=== PATIENT | male | born 1945 | race Caucasian/White ===

== ENCOUNTER 2017-05-17 10:27 | Emergency (ER) | payer MEDICARE, OTHER ==
[~2017-05-17] VITALS: Ht 182.9 cm; Wt 99.8 kg
[~2017-05-17 10:27] MED LIST: DIGOXIN0.125 MG PO; FLEXERIL10 M1 PO; HYDROCODONE1 TABLET PO; LEVOTHYROXIN0.025 M1 PO; MELOXICAM7.5 MG PO; PANTOPRAZOLE SO40 M1 PO; TRAMADOL50 M1 PO; VALSARTAN AND H1 TA1 PO; ZOFRAN4 MG PO
--- NOTE | 2017-05-17 11:17 | Emergency Room Report ---
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 N Clinical Suspician of Infection? N Mental Status: 1 - Regular (Normal Baseline) Sepsis Risk:Low Sepsis Risk Have you (or family members/close friends) recently traveled outside the [place]? N If Yes, where/when: Have you had exposure to infectious disease within the past month? N TB? Other? 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 No numbness or weakness. Lac 2.5 cm at dorsal PIP joint of right index finger, L shaped, no tendon or bone exposure. ALLERGIES Coded Allergies: NO KNOWN ALLERGIES (05/17/17) Home Medications Reported Medications Levothyroxine Sodium (Levothyroxine 0.025MG) 0.025 MG PO DAILY 90 Days Pantoprazole Sodium 40 MG PO DAILY 90 Days VALSARTAN/HYDROCHLOROTHIAZIDE (Valsartan-Hctz 160-12.5 MG Tab) 1 TAB PO DAILY 30 Days History Medical History General Angina: No IN: No Hypertension? Yes Hyperlipidemia? No CHF? No COPD? No Asthma? No CVA? No Seizures? No Diabetes? No GB Disease: No MRSA? No TB? No Cancer? No Immunization Hx DT/Tetanus 1-4 Years Ago Surgical Hx Previous Surgery?Y CARDIAC ABLATION Social History Smoking Hx Smoker: Never Smoker Tobacco: No Alcohol Alcohol: No Review of Systems All Other Systems Reviewed and Negative Skin see HPI Physical Exam Vital Signs Vital Signs Date Time Temp Pulse Resp B/P Pulse O2 O2 Flow FiO2 Ox Delivery Rate 05/17 1035 98.1 75 16 138/82 98 General Appearance normal appearance, WD/WN, no apparent distress Respiratory Status No: respiratory distress. Cardiovascular no peripheral edema, normal peripheral pulses Peripheral Pulses Peripheral Pulses 4+ radial (R) Extremities normal range of motion, normal inspection, normal capillary refill Strength 5 Upper Ext (L), 5 Upper Ext (R), 5 Lower Ext (L), 5 Lower Ext (R) Neurologic alert, normal exam, no motor/sensory deficits, Good ROM all joints of all digits when checked in isolation. Glascow Coma Scale Glascow Coma Scale Response Value EYE response: 4 Spontaneously 4 MOTOR response: 6 OBEYS 6 VERBAL response: 5 Oriented & Converses 5 Total 15 Skin laceration(s), L shaped, dorsal aspect DIP right index, 2.5 cm, non tendon or bone exposure; no debris; positive triangular thick flap noted. Medical Decision Making LABS/Meds/Orders Pt receiving controlled substance in ED? No Results/Orders Current Medication Orders Sig/Kasi Start time Last Medication Dose Route Stop Time Status Admin Lidocaine HCl 0 .STK-MED ONE 05/17 1037 DC .ROUTE Procedures Laceration/Wound Repair Laceration/Wound Repair Risks/benefits discussed with pt/guardian? Yes Tetanus status up to date Wound Location finger(s) Wound Length (cm) 2.5 Wound's Depth, Shape sucutaneous tissue Wound Explored no FB identified Risk of retained FB explained to pt/guardian? Yes Irrigated w/ Saline (ccs) 100 Wound Prep Hibiclens Anesthesia 1% Lidocaine Volume Anesthetic (ccs) 6 Wound Debrided none Wound Repaired With sutures Suture Size/Type 4:0, Ethilon Layer Closure No Total Number Sutures 8 Sterile Dressing Applied Yes Splint Applied No Departure Departure Time of Disposition 1112 Disposition DC Home or Self Care(routine) Clinical Impression Primary Impression: Laceration of right index finger Qualifiers: Encounter type: initial encounter Damage to nail status: without damage Foreign body presence: without foreign body Qualified Code: S61.210A - Laceration without foreign body of right index finger without damage to nail, initial encounter Condition STABLE Referrals Rory Negrete MD Patient Instructions DI for Minor Laceration Additional Instructions One handed work until sutures out; keep wound covered and dry at all times. Discharge Counseling Counseled pt/family regarding diagnosis, home care, follow up needs ED Critical Care Critical Care No at [id number]
--- NOTE | 2017-05-17 11:17 | Emergency Room Report ---
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 N Clinical Suspician of Infection? N Mental Status: 1 - Regular (Normal Baseline) Sepsis Risk:Low Sepsis Risk Have you (or family members/close friends) recently traveled outside the [place]? N If Yes, where/when: Have you had exposure to infectious disease within the past month? N TB? Other? 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 No numbness or weakness. Lac 2.5 cm at dorsal PIP joint of right index finger, L shaped, no tendon or bone exposure. ALLERGIES Coded Allergies: NO KNOWN ALLERGIES (05/17/17) Home Medications Reported Medications Levothyroxine Sodium (Levothyroxine 0.025MG) 0.025 MG PO DAILY 90 Days Pantoprazole Sodium 40 MG PO DAILY 90 Days VALSARTAN/HYDROCHLOROTHIAZIDE (Valsartan-Hctz 160-12.5 MG Tab) 1 TAB PO DAILY 30 Days History Medical History General Angina: No [place]: No Hypertension? Yes Hyperlipidemia? No CHF? No COPD? No Asthma? No CVA? No Seizures? No Diabetes? No GB Disease: No MRSA? No TB? No Cancer? No Immunization Hx DT/Tetanus 1-4 Years Ago Surgical Hx Previous Surgery?Y CARDIAC ABLATION Social History Smoking Hx Smoker: Never Smoker Tobacco: No Alcohol Alcohol: No Review of Systems All Other Systems Reviewed and Negative Skin see HPI Physical Exam Vital Signs Vital Signs Date Time Temp Pulse Resp B/P Pulse O2 O2 Flow FiO2 Ox Delivery Rate 05/17 1035 98.1 75 16 138/82 98 General Appearance normal appearance, WD/WN, no apparent distress Respiratory Status No: respiratory distress. Cardiovascular no peripheral edema, normal peripheral pulses Peripheral Pulses Peripheral Pulses 4+ radial (R) Extremities normal range of motion, normal inspection, normal capillary refill Strength 5 Upper Ext (L), 5 Upper Ext (R), 5 Lower Ext (L), 5 Lower Ext (R) Neurologic alert, normal exam, no motor/sensory deficits, Good ROM all joints of all digits when checked in isolation. Glascow Coma Scale Glascow Coma Scale Response Value EYE response: 4 Spontaneously 4 MOTOR response: 6 OBEYS 6 VERBAL response: 5 Oriented & Converses 5 Total 15 Skin laceration(s), L shaped, dorsal aspect DIP right index, 2.5 cm, non tendon or bone exposure; no debris; positive triangular thick flap noted. Medical Decision Making LABS/Meds/Orders Pt receiving controlled substance in ED? No Results/Orders Current Medication Orders Sig/Kasi Start time Last Medication Dose Route Stop Time Status Admin Lidocaine HCl 0 .STK-MED ONE 05/17 1037 DC .ROUTE Procedures Laceration/Wound Repair Laceration/Wound Repair Risks/benefits discussed with pt/guardian? Yes Tetanus status up to date Wound Location finger(s) Wound Length (cm) 2.5 Wound's Depth, Shape sucutaneous tissue Wound Explored no FB identified Risk of retained FB explained to pt/guardian? Yes Irrigated w/ Saline (ccs) 100 Wound Prep Hibiclens Anesthesia 1% Lidocaine Volume Anesthetic (ccs) 6 Wound Debrided none Wound Repaired With sutures Suture Size/Type 4:0, Ethilon Layer Closure No Total Number Sutures 8 Sterile Dressing Applied Yes Splint Applied No Departure Departure Time of Disposition 1112 Disposition DC Home or Self Care(routine) Clinical Impression Primary Impression: Laceration of right index finger Qualifiers: Encounter type: initial encounter Damage to nail status: without damage Foreign body presence: without foreign body Qualified Code: S61.210A - Laceration without foreign body of right index finger without damage to nail, initial encounter Condition STABLE Referrals Rory Negrete MD Patient Instructions DI for Minor Laceration Additional Instructions One handed work until sutures out; keep wound covered and dry at all times. Discharge Counseling Counseled pt/family regarding diagnosis, home care, follow up needs ED Critical Care Critical Care No at 1116
[2017-05-17 11:44] VITALS: BP 138/82
== END 2017-05-17 11:45 | disposition home or self-care (01) ==
LOC: ER 10:27
PROC: 0HQFXZZ Repair Right Hand Skin, External Approach (ICD-10-PCS; principal; 2017-05-17)
DX: S61.210A Laceration without foreign body of right index finger without damage to nail, initial encounter (principal); W26.8XXA Contact with other sharp object(s), not elsewhere classified, initial encounter; Y92.009 Unspecified place in unspecified non-institutional (private) residence as the place of occurrence of the external cause

== ENCOUNTER 2017-05-28 18:14 | Emergency (ER) | payer MEDICARE, OTHER ==
[2017-05-28 18:31] VITALS: BP 148/90
== END 2017-05-28 18:32 | disposition home or self-care (01) ==
LOC: UTC 18:14
DX: S61.210D Laceration without foreign body of right index finger without damage to nail, subsequent encounter (principal)